=== PATIENT | female | born 1950 | race Caucasian/White ===

== ENCOUNTER 2019-05-17 06:50 | Day surgery (SDC) | payer MEDICARE ==
[2019-05-16 13:01] LABS: BASOPHILS # (AUTO) 0.1 X10'3 (0-0.2); BASOPHILS % (AUTO) 0.8 % (0-1); EOSINOPHILS # (AUTO) 0.4 X10'3 (0-0.9); EOSINOPHILS % (AUTO) 5.3 % (0-6); HEMATOCRIT 34.6 % (35.0-45.0); HEMOGLOBIN 11.7 g/dl (12.0-16.0); LYMPHOCYTES # (AUTO) 2.4 X10'3 (1.1-4.8); LYMPHOCYTES % (AUTO) 29.7 % (21-51); MEAN CORPUSCULAR HEMOGLOBIN 29.8 PG (27.0-31.0); MEAN CORPUSCULAR HGB CONC 33.8 g/dL (33.0-36.5); MEAN CORPUSCULAR VOLUME 88.3 FL (78-98); MONOCYTES # (AUTO) 0.7 X10'3 (0-0.9); MONOCYTES % (AUTO) 8.8 % (2-12); NEUTROPHILS # (AUTO) 4.6 X10'3 (1.8-7.7); NEUTROPHILS % (AUTO) 55.4 % (42-75); PLATELET COUNT 288 X10'3 (140-440); RED BLOOD COUNT 3.92 X10'6 (4.20-5.60); RED CELL DISTRIBUTION WIDTH 13.7 % (11.5-14.5); WHITE BLOOD COUNT 8.2 X10'3 (4.5-11.0)
[2019-05-16 13:18] LABS: ALBUMIN 3.5 G/DL (3.4-5.0); ANION GAP 7 (8-16); BLOOD UREA NITROGEN 22 MG/DL (7-18); BUN/CREATININE RATIO 23.2 (6.6-38.0); CALCIUM 10.6 MG/DL (8.5-10.1); CHLORIDE 102 MMOL/L (99-107); CREATININE 0.95 MG/DL (0.40-0.90); GLUCOSE 101 MG/DL (70-104); POTASSIUM 4.2 MMOL/L (3.5-5.1); SODIUM 135 MMOL/L (135-145); TOTAL CARBON DIOXIDE 26.1 MMOL/L (24-32); eGFR 58 ML/MIN
[~2019-05-17] VITALS: Ht 170.2 cm; Wt 96.2 kg
[2019-05-17] MEDS ORDERED: morphine 10mg/ml inj. IV ONE (07:30)
[2019-05-17] MEDS ORDERED: amiodarone in dextrose, iso-osm 150mg/100ml bag IV ONE (07:30)
[2019-05-17] MEDS ORDERED: atropine 0.1mg/ml 10ml syringe IV ONE (07:30)
[2019-05-17] MEDS ORDERED: LORazepam 0.5 MG tablet PO ONE (07:30)
[2019-05-17] MEDS ORDERED: normal saline 1000ml 1,000 ML IV SCH (07:30)
[2019-05-17] MEDS ORDERED: MIDAZolam 5mg/ml 2ml vial IV ONE (07:30)
[2019-05-17] MEDS ORDERED: diphenhydrAMINE 25mg capsule PO ONE (07:30)
[2019-05-17] MEDS ORDERED: LOSA50TA64 PO (07:57)
[2019-05-17] MEDS ORDERED: APIX5TAB3 PO (07:57)
[2019-05-17] MEDS ORDERED: FAMO20TA8 PO (07:57)
[2019-05-17] MEDS ORDERED: HYDR50TA3 PO (07:57)
[2019-05-17] MEDS ORDERED: ATOR40TA71 PO (07:57)
[2019-05-17] MEDS ORDERED: METO50TA17 PO (07:57)
[2019-05-17] MEDS ORDERED: POTA10TA19 PO (07:57)
[2019-05-17] MEDS ORDERED: METF-436 PO (07:57)
== END 2019-05-17 08:30 | disposition home or self-care (01) ==
LOC: SSTAY O 06:50
PROVIDERS: ATTEND Internal Medicine Cardiovascular Disease
DX: I48.0 Paroxysmal atrial fibrillation (principal); I10 Essential (primary) hypertension; E78.5 Hyperlipidemia, unspecified; E11.9 Type 2 diabetes mellitus without complications; Z86.73 Personal history of transient ischemic attack (TIA), and cerebral infarction without residual deficits
CPT/HCPCS: 36415; 80048; 85025; 85610; 93005; J7030